=== PATIENT | male | born 1965 | race Caucasian/White ===

== ENCOUNTER 2021-10-17 06:45 | Emergency (ER) | payer OTHER, SELFPAY ==
[~2021-10-17] VITALS: Ht 167.6 cm; Wt 102.3 kg
[2021-10-17] MEDS ORDERED: LORazepam 1 MG TABLET PO ONE (07:15)
[2021-10-17] MEDS ORDERED: RisperiDONE 1 MG TABLET PO ONE (07:15)
[2021-10-17 07:21] VITALS: BP 129/99
== END 2021-10-17 08:20 | disposition home or self-care (01) ==
LOC: EMS 06:45
DX: F20.9 Schizophrenia, unspecified (principal); F41.9 Anxiety disorder, unspecified; F14.90 Cocaine use, unspecified, uncomplicated
CPT/HCPCS: 99284; Z7502; Z7610